=== PATIENT | male | born 1940 | race Caucasian/White ===

== ENCOUNTER → 2016-10-22 | Outpatient (CLI) | payer MEDICARE, OTHER | END | disposition home or self-care (01) | LOC: PCVCCLINIC 13:25 | PROVIDERS: ATTEND Internal Medicine | DX: I48.0 Paroxysmal atrial fibrillation (principal); E78.00 Pure hypercholesterolemia, unspecified; E11.9 Type 2 diabetes mellitus without complications; J38.00 Paralysis of vocal cords and larynx, unspecified; R55 Syncope and collapse; Z95.2 Presence of prosthetic heart valve; Z98.890 Other specified postprocedural states | CPT/HCPCS: 93005; G0463 ==

== ENCOUNTER → 2017-02-02 | Outpatient (CLI) | payer MEDICARE, OTHER | END | disposition home or self-care (01) | LOC: PCVCCLINIC 16:39 | PROVIDERS: ATTEND Internal Medicine | DX: I44.0 Atrioventricular block, first degree (principal); I48.0 Paroxysmal atrial fibrillation; E78.5 Hyperlipidemia, unspecified; E78.00 Pure hypercholesterolemia, unspecified; I11.0 Hypertensive heart disease with heart failure; I50.9 Heart failure, unspecified; Z85.46 Personal history of malignant neoplasm of prostate; Z79.82 Long term (current) use of aspirin; Z79.899 Other long term (current) drug therapy; Z87.891 Personal history of nicotine dependence; Z79.01 Long term (current) use of anticoagulants; Z86.79 Personal history of other diseases of the circulatory system; Z98.890 Other specified postprocedural states | CPT/HCPCS: 80061; 93005; G0463 ==

== ENCOUNTER → 2017-04-26 | Outpatient (CLI) | payer MEDICARE, OTHER | END | disposition home or self-care (01) | LOC: PCVCCLINIC 13:14 | PROVIDERS: ATTEND Internal Medicine | DX: I11.0 Hypertensive heart disease with heart failure (principal); I50.32 Chronic diastolic (congestive) heart failure; I48.0 Paroxysmal atrial fibrillation; E78.00 Pure hypercholesterolemia, unspecified; J38.00 Paralysis of vocal cords and larynx, unspecified; E11.9 Type 2 diabetes mellitus without complications; I44.0 Atrioventricular block, first degree; Z88.8 Allergy status to other drugs, medicaments and biological substances; Z79.01 Long term (current) use of anticoagulants; Z87.891 Personal history of nicotine dependence; Z98.890 Other specified postprocedural states; Z85.46 Personal history of malignant neoplasm of prostate; Z79.84 Long term (current) use of oral hypoglycemic drugs | CPT/HCPCS: 93005; G0463 ==

== ENCOUNTER → 2017-11-04 | Outpatient (CLI) | payer MEDICARE, OTHER | END | disposition home or self-care (01) | LOC: PCVCCLINIC 10:51 | DX: I50.32 Chronic diastolic (congestive) heart failure (principal); I48.0 Paroxysmal atrial fibrillation; E78.5 Hyperlipidemia, unspecified; J38.00 Paralysis of vocal cords and larynx, unspecified; R94.31 Abnormal electrocardiogram [ECG] [EKG]; Z98.890 Other specified postprocedural states; Z87.891 Personal history of nicotine dependence; Z79.899 Other long term (current) drug therapy | CPT/HCPCS: 80061; 93005; G0463 ==

== ENCOUNTER → 2018-05-30 | Outpatient (CLI) | payer MEDICARE, OTHER ==
--- NOTE | 2018-05-30 10:14 | PCVCIMAG ---
APPROVED REPORT Study performed: 05/30/2018 09:04:20 EXAM: Comprehensive 2D, Doppler, and color-flow Echocardiogram Patient Location: Echo lab Status: routine BSA: 2.11 HR: 70 bpmBP: 132/76 mmHg Rhythm: NSR Other Information Study Quality: Adequate Indications Mv Repair, diastolic CHF, Parox A Fib 2D Dimensions IVSd: 12.85 (7-11mm) LVDd: 45.19 mm PWd: 12.08 (7-11mm) LVDs: 35.94 (25-40mm) Left Atrium: 49.47 (27-40mm) Aortic Root: 36.21 mm LV Single Plane 4CH: 58.21 % LV Single Plane 2CH: 65.03 % Biplane EF: 63.3 % Volumes Left Atrial Volume (Systole) Single Plane 4CH: 120.81 mLSingle Plane 2CH: 112.25 mL LA ESV Index: 57.00 mL/m2 Aortic Valve AoV Peak Jabari.: 1.52 m/s AO Peak Gr.: 9.24 mmHgLVOT Max P.61 mmHg LVOT Max V: 0.95 m/s AI Vmax: 4.00 m/s AI [place]: 2.37 m/s2 AI PHT: 490.56 ms Mitral Valve MV Peak Gr.: 7.64 mmHg MV Mean Gr.: 2.88 mmHgE/A Ratio: 1.1 MV Decel. Time: 486.40 ms MV E Max Jabari.: 1.14 m/s MV A Jabari.: 1.00 m/s MV Max Jabari.: 1.38 m/s MV Mean Jabari.: 0.78 m/s MV VTI: 370.84 mm MV PHT: 104.65 ms MVA (PHT): 2.10 cm2 IVRT: 100.35 ms Pulmonary Valve PV Peak Jabari.: 0.95 m/sPV Peak Gr.: 3.61 mmHg Pulmonary Vein P Vein S: 0.46 m/sP Vein A: 0.25 m/s P Vein D: 0.63 m/sP Vein A Dur.: 117.6 msec P Vein S/D Ratio: 0.73 Tricuspid Valve TR Peak Jabari.: 2.55 m/s TR Peak Gr.: 26.05 mmHg TV Vmax: 0.61 m/s Left Ventricle The left ventricle is normal size. There is normal LV segmental wall motion. There is normal left ventricular wall thickness. Left ventricular systolic function is normal. The left ventricular ejection fraction is within the normal range. LVEF is 60-65%. This study is not technically sufficient to allow evaluation of the LV diastolic function. Right Ventricle The right ventricle is normal size. The right ventricular systolic function is normal. Atria Left atrium is severely dilated. Right atrium is severely dilated. Aortic Valve The aortic valve is trileaflet, mildly sclerotic Mild aortic regurgitation. There is no aortic valvular stenosis. Mitral Valve Changes consistent with posterior leaflet repair; annuloplasty ring There is no mitral valve regurgitation noted. No mitral stenosis with a calculated mitral valve area is 2.1 cm2 with maximum pressure gradient of 7.6 mmHg and mean pressure gradient of 2.9 mmHg. Tricuspid Valve The tricuspid valve is normal in structure. Mild tricuspid regurgitation with PAP of 33 mmHg. Pulmonic Valve The pulmonary valve is normal in structure. There is mild pulmonic valvular regurgitation. Great Vessels The aortic root is normal in size. IVC is normal in size and collapses >50% with inspiration. Pericardium There is no pericardial effusion. There is no pleural effusion. <Conclusion> Left ventricular systolic function is normal. There is normal LV segmental wall motion. LVEF is 60-65%. Left atrium is severely dilated. The aortic valve is trileaflet, mildly sclerotic. Mild aortic regurgitation, no stenosis. Changes consistent with posterior leaflet repair; annuloplasty ring. No mitral valve regurgitation or stenosis Mild tricuspid regurgitation with pulmonary artery pressure of 33 mmHg. There is no pericardial effusion.
== END | disposition home or self-care (01) ==
LOC: PCVCIMAG 09:34
PROVIDERS: ATTEND Internal Medicine
DX: I07.1 Rheumatic tricuspid insufficiency (principal); I50.32 Chronic diastolic (congestive) heart failure; I48.0 Paroxysmal atrial fibrillation; E78.5 Hyperlipidemia, unspecified; I65.23 Occlusion and stenosis of bilateral carotid arteries; J38.00 Paralysis of vocal cords and larynx, unspecified; Z87.891 Personal history of nicotine dependence; Z79.84 Long term (current) use of oral hypoglycemic drugs
CPT/HCPCS: 80061; 93005; 93306; G0463

== ENCOUNTER → 2018-05-30 | Outpatient (CLI) | payer MEDICARE, OTHER | END | disposition home or self-care (01) | LOC: PCVCCLINIC 10:28 | PROVIDERS: ATTEND Internal Medicine | DX: E78.5 Hyperlipidemia, unspecified (principal); I48.0 Paroxysmal atrial fibrillation; I50.32 Chronic diastolic (congestive) heart failure; I65.23 Occlusion and stenosis of bilateral carotid arteries; J38.00 Paralysis of vocal cords and larynx, unspecified; R94.31 Abnormal electrocardiogram [ECG] [EKG]; Z98.890 Other specified postprocedural states; Z88.8 Allergy status to other drugs, medicaments and biological substances; Z87.891 Personal history of nicotine dependence; Z79.84 Long term (current) use of oral hypoglycemic drugs; Z79.899 Other long term (current) drug therapy | CPT/HCPCS: 80061; 93005; G0463 ==

== ENCOUNTER → 2019-05-29 | Outpatient (CLI) | payer MEDICARE, OTHER ==
--- NOTE | 2019-05-29 09:21 | PCVCIMAG ---
APPROVED REPORT Indications Stenosis Risk Factors Hypertension: Hyperlipidemia Doppler Spectral Velocity Analysis PSV / EDVPSV / EDV ECA (R) 99 / 17 cm/sECA (L) 110 / 18 cm/s dICA (R) 59 / 18 cm/sdICA (L) 58 / 20 cm/s Geo (R) 56 / 16 cm/smICA (L) 56 / 18 cm/s pICA (R) 44 / 13 cm/spICA (L) 56 / 13 cm/s Bulb (R) 65 / 18 cm/sBulb (L) 48 / 14 cm/s dCCA (R) 73 / 19 cm/sdCCA (L) 66 / 14 cm/s mCCA (R) 79 / 23 cm/smCCA (L) 100 / 27 cm/s Vert (R) 38 / 16 cm/sVert (L) 39 / 10 cm/s ICA/CCA 0.81ICA/CCA 0.88 Basic Measurements Blood Pressure: Pulses: Right Left RightLeft Brachial(Sitting) 130/55iuTz534/76mmHgTemporal Real Time B-Mode Imaging Vert. (R)AntegradeVert. (L)Antegrade Findings The right carotid bulb has mild plaque. The right proximal internal carotid artery shows no significant stenosis. The right common carotid artery shows no significant stenosis. The right external carotid artery shows no significant stenosis. The left carotid bulb has mild-moderate plaque. The left proximal internal carotid artery shows <40% stenosis. The left common carotid artery shows no significant stenosis. The left external carotid artery shows no significant stenosis. Conclusion 1. Right internal carotid artery plaquing without significant stenosis. 2. Left internal carotid artery stenosis (<40%). 3. Antegrade vertebral flow.
--- NOTE | 2019-05-29 13:09 | PCVCIMAG ---
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) 2D Dimensions IVSd: 13.21 (7-11mm)LVOT Diam: 23.00 (18-24mm) LVDd: 43.63 mm PWd: 13.13 (7-11mm)Ascending Ao: 36.28 (22-36mm) LVDs: 30.33 (25-40mm) Left Atrium: 57.90 (27-40mm) Aortic Root: 36.49 mm LV Single Plane 4CH: 70.23 % LV Single Plane 2CH: 65.06 % Biplane EF: 68.1 % Volumes Left Atrial Volume (Systole) Single Plane 4CH: 157.26 mLSingle Plane 2CH: 126.49 mL LA ESV Index: 68.00 mL/m2 Aortic Valve AoV Peak Jabari.: 1.30 m/s AO Peak Gr.: 6.71 mmHgLVOT Max P.40 mmHg LVOT Max V: 0.92 m/s ISABEL Vmax: 2.97 cm2 Mitral Valve MV Peak Gr.: 11.18 mmHg MV Mean Gr.: 4.11 mmHg MV Max Jabari.: 1.67 m/s MV Mean Jabari.: 0.90 m/s MV VTI: 430.20 mm MV PHT: 100.39 ms MVA (PHT): 2.19 cm2 Pulmonary Valve PV Peak Jabari.: 0.90 m/sPV Peak Gr.: 3.25 mmHg SD End Vmax: 1.13 m/s Tricuspid Valve TR Peak Jabari.: 3.00 m/sRAP Estimate: 7.00 mmHg TR Peak Gr.: 36.04 mmHg PA Pressure: 43.00 mmHg Left Ventricle The left ventricle is normal size. There is normal LV segmental wall motion. Mild to moderate concentric left ventricular hypertrophy. Left ventricular systolic function is normal. The left ventricular ejection fraction is within the normal range. LVEF is 65%. This study is not technically sufficient to allow evaluation of the LV diastolic function. Right Ventricle The right ventricle is normal size. The right ventricular systolic function is normal. Atria Left atrium is severely dilated. Right atrium is dilated. Aortic Valve Aortic valve is trileaflet, mildly sclerotic. Trace aortic regurgitation. There is no aortic valvular stenosis. Mitral Valve Changes consistent with posterior leaflet repair. Mitral annuloplasty ring is present. Trace mitral regurgitation. The calculated mitral valve area is 2.2 cm2 with maximum pressure gradient of 11.2 mmHg and mean pressure gradient of 4.1 mmHg. Tricuspid Valve The tricuspid valve is normal in structure. Mild to moderate tricuspid regurgitation. Pulmonary artery pressure is 40 mmHg. Pulmonic Valve The pulmonary valve is normal in structure. Mild pulmonic regurgitation. Great Vessels The aortic root is normal in size. The ascending aorta is normal in size. IVC is normal in size and collapses >50% with inspiration. Pericardium There is no pericardial effusion. <Conclusion> Left ventricular systolic function is normal. There is normal LV segmental wall motion. LVEF is 65%. Left atrium is severely dilated. Aortic valve is trileaflet, mildly sclerotic. Trace aortic regurgitation, no stenosis. Changes consistent with posterior leaflet repair. Mitral annuloplasty ring is present. Trace mitral regurgitation. Calculated mitral valve area is 2.2 cm2 (maximum gradient of 11.2 mmHg and mean pressure gradient of 4.1 mmHg). Mild to moderate tricuspid regurgitation. Pulmonary artery pressure of 40 mmHg. There is no pericardial effusion.
== END | disposition home or self-care (01) ==
LOC: PCVCIMAG 08:47
PROVIDERS: ATTEND Internal Medicine
DX: I65.23 Occlusion and stenosis of bilateral carotid arteries (principal); I07.1 Rheumatic tricuspid insufficiency; I48.0 Paroxysmal atrial fibrillation; I11.0 Hypertensive heart disease with heart failure; I50.32 Chronic diastolic (congestive) heart failure; E78.5 Hyperlipidemia, unspecified; J38.00 Paralysis of vocal cords and larynx, unspecified; E78.00 Pure hypercholesterolemia, unspecified; Z98.890 Other specified postprocedural states
CPT/HCPCS: 36415; 80061; 93005; 93306; 93880; G0463